=== PATIENT | female | born 1975 | race Caucasian/White ===

== ENCOUNTER → 2016-11-10 | Outpatient (CLI) | payer MEDICARE ==
[~2016-11-10] MED LIST: ATARAX 25MG25 MG/TAB PO; CLEOCIN HCL75 MG PO; EFFEXOR 3737.5 MG/TA PO; IBU800 M1 PO; KLONOPIN 1MG1 MG PO; MELATONIN3 MG PO; MINIPRESS 1M1 MG/CAP PO; ZOFRAN ODT4 MG PO; [UNRECOGNIZED DRUG - OTHER]
== END ==
LOC: BHSO 14:59
DX: F31.81 Bipolar II disorder (principal)

== ENCOUNTER 2016-11-19 07:57 | Emergency (ER) | payer MEDICARE ==
[~2016-11-19] VITALS: Ht 157.5 cm; Wt 72.7 kg
[2016-11-19] MEDS ORDERED: KLONOPIN 1MG1 MG PO (08:05)
[2016-11-19] MEDS ORDERED: MELATONIN3 MG PO (08:05)
[2016-11-19] MEDS ORDERED: [UNRECOGNIZED DRUG - OTHER] (08:06)
[2016-11-19] MEDS ORDERED: CLEOCIN HCL75 MG PO (08:19)
[2016-11-19] MEDS ORDERED: IBU800 M1 PO (09:08)
[2016-11-19 10:01] VITALS: BP 119/88; PULSE 79; TEMP 97.5
== END 2016-11-19 09:54 | disposition home or self-care (01) ==
LOC: COL.ER 07:57
DX: S02.2XXA Fracture of nasal bones, initial encounter for closed fracture (principal); K08.89 Other specified disorders of teeth and supporting structures; J32.0 Chronic maxillary sinusitis; S01.21XA Laceration without foreign body of nose, initial encounter; W22.8XXA Striking against or struck by other objects, initial encounter
CPT/HCPCS: J1170

== ENCOUNTER → 2016-12-14 | Outpatient (CLI) | payer MEDICARE | LOC: BHSO 09:19 | DX: F31.81 Bipolar II disorder (principal) ==

== ENCOUNTER 2016-12-17 14:52 | Emergency (ER) | payer MEDICARE ==
[~2016-12-17] VITALS: Ht 157.5 cm; Wt 70.5 kg
[~2016-12-17 14:52] MED LIST changes: -ATARAX 25MG25 MG/TAB PO; -EFFEXOR 3737.5 MG/TA PO; -MINIPRESS 1M1 MG/CAP PO; -ZOFRAN ODT4 MG PO
[2016-12-17] MEDS ORDERED: EFFEXOR 3737.5 MG/TA PO (14:58)
[2016-12-17] MEDS ORDERED: MINIPRESS 1M1 MG/CAP PO (14:58)
[2016-12-17] MEDS ORDERED: ATARAX 25MG25 MG/TAB PO (14:59)
[2016-12-17 15:35] LABS: BASO % 0.3 % (0.0-2.0); EOS % 0.2 % (0-4.0); GRAN # 4.5 (1.4-6.5); GRAN % 78.7 % (42.2-75.2); HEMATOCRIT 43.1 % (37.0-47.0); HEMOGLOBIN 14.8 g/dl (12.5-16.0); LYMPH % 16.6 % (20.0-51.0); MEAN CELL VOLUME 90 fl (80.0-100.0); MEAN CORPUSCULAR HEMOGLOBIN 31 pg (27.0-31.0); MEAN CORPUSCULAR HGB CONC 34 g/dl (33.0-37.0); MEAN PLATELET VOLUME 10.9 fl (7.4-10.4); MONO # 0.2 (0.1-0.6); PLATELET COUNT 216 K/mm3 (130-400); RED BLOOD COUNT 4.77 M/mm3 (4.10-5.30); REDCELL DISTRIBUTION WIDTH-CV 11.7 % (11.5-14.5); WHITE BLOOD COUNT 5.8 K/mm3 (4.8-10.8)
[2016-12-17 15:51] LABS: INFLUENZA B NEGATIVE
[2016-12-17 16:33] LABS: ALBUMIN 4.3 gm/dL (3.5-5.0); BILIRUBIN,TOTAL 1.1 mg/dL (0.0-1.0); CALCIUM 9.2 mg/dL (8.4-10.2); CREATININE, serum 0.65 mg/dL (0.52-1.25); POTASSIUM 3.5 mmol/L (3.4-5.0); TOTAL PROTEIN 7.6 gm/dL (6.4-8.2)
[2016-12-17] MEDS ORDERED: ZOFRAN ODT4 MG PO (16:42)
[2016-12-17 17:03] VITALS: BP 133/88; PULSE 86; TEMP 98.7
== END 2016-12-17 17:05 | disposition home or self-care (01) ==
LOC: COL.ER 14:52
PROVIDERS: Emergency Medicine
DX: M79.1 Myalgia (principal); R11.2 Nausea with vomiting, unspecified; R51 Headache
CPT/HCPCS: J1885; J2060; J2405; J2550; J7030

== ENCOUNTER → 2016-12-23 | Outpatient (CLI) | payer MEDICARE ==
[~2016-12-23] MED LIST changes: +ATARAX 25MG25 MG/TAB PO; +EFFEXOR 3737.5 MG/TA PO; +MINIPRESS 1M1 MG/CAP PO; +ZOFRAN ODT4 MG PO
== END ==
LOC: BHSO 09:03
DX: F43.10 Post-traumatic stress disorder, unspecified (principal)

== ENCOUNTER → 2016-12-29 | Outpatient (CLI) | payer MEDICARE | LOC: BHSO 08:30 | DX: F43.10 Post-traumatic stress disorder, unspecified (principal) ==

== ENCOUNTER → 2017-01-04 | Outpatient (CLI) | payer MEDICARE | LOC: BHSO 07:58 | DX: F43.10 Post-traumatic stress disorder, unspecified (principal) ==

== ENCOUNTER → 2017-01-18 | Outpatient (CLI) | payer MEDICARE | LOC: BHSO 09:13 | DX: F43.10 Post-traumatic stress disorder, unspecified (principal) ==

== ENCOUNTER → 2017-01-25 | Outpatient (CLI) | payer MEDICARE | LOC: BHSO 09:25 | DX: F43.10 Post-traumatic stress disorder, unspecified (principal) ==

== ENCOUNTER → 2017-04-09 | Outpatient (CLI) | payer MEDICARE | LOC: COL.LAB 10:43 | DX: R19.7 Diarrhea, unspecified (principal) ==